=== PATIENT | female | born 1950 | race Caucasian/White ===

== ENCOUNTER 2020-10-28 16:33 | Outpatient (CLI) | payer MEDICARE, OTHER | END 2020-10-28 16:34 | disposition critical access hospital (66) | LOC: EMS 16:33 | DX: R42 Dizziness and giddiness (principal) | CPT/HCPCS: A0425; A0427 ==

== ENCOUNTER 2020-10-28 16:58 | Emergency (ER) | payer MEDICARE, OTHER ==
[2020-10-28 17:38] LABS: BASOPHILS # (AUTO) 0.1 10^3/uL (0.0-0.1); BASOPHILS % (AUTO) 0.6 %; EOSINOPHILS # (AUTO) 0.2 10^3/uL (0.0-0.7); EOSINOPHILS % (AUTO) 1.8 %; HCT - HEMATOCRIT 41.1 % (37.0-47.0); HGB - HEMOGLOBIN 14.2 g/dL (12.0-16.0); LYMPHOCYTES # (AUTO) 4.1 10^3/uL (1.5-3.5); LYMPHOCYTES % (AUTO) 43.3 %; MEAN CORPUSCULAR HEMOGLOBIN 32.9 pg (27.0-31.0); MEAN CORPUSCULAR HGB CONC 34.5 g/dL (32.0-36.0); MEAN CORPUSCULAR VOLUME 95.1 fL (81.0-99.0); MEAN PLATELET VOLUME 9.3 fL (7.9-10.8); MONOCYTES # (AUTO) 0.7 10^3/uL (0.0-1.0); MONOCYTES % (AUTO) 7.1 %; NEUTROPHILS # (AUTO) 4.4 10^3/uL (1.5-6.6); PLT - PLATELET COUNT 253 10^3/uL (130-450); RED BLOOD COUNT 4.32 10^6/uL (4.20-5.40); RED CELL DISTRIBUTION WIDTH 12.8 % (12.0-15.0); WHITE BLOOD COUNT 9.4 x10^3/uL (4.8-10.8)
[2020-10-28 17:49] LABS: ALBUMIN 4.5 g/dL (3.2-5.5); BILIRUBIN,TOTAL 0.9 mg/dL (0.2-1.0); CALCIUM 9.5 mg/dL (8.5-10.3); CREATININE 0.9 mg/dL (0.4-1.0); MAGNESIUM 2.5 mg/dL (1.7-2.8); TOTAL PROTEIN 7.7 g/dL (6.7-8.2)
[2020-10-28 17:50] LABS: ALBUMIN/GLOBULIN RATIO 1.4 (1.0-2.2)
--- NOTE | 2020-10-28 17:56 | XRAY Report ---
PROCEDURE: Hip w/Pelvis 2-3V LT INDICATIONS: hip inj TECHNIQUE: AP pelvis with lateral view(s) of the left hip(s). COMPARISON: None. FINDINGS: Bones: No fractures or dislocations. Pelvic ring appears intact. No suspicious bony lesions. Soft tissues: The visualized bowel gas pattern is normal. No suspicious soft tissue calcifications. IMPRESSION: Unremarkable pelvic and left hip radiographs Reviewed by: Harrison Livingston MD on 10/28/2020 4:54 PM [facility]DT Approved by: Harrison Livingston MD on 10/28/2020 4:54 PM AKDT Station ID: [id number]
[2020-10-28] MEDS ORDERED: SODIUM CHLORIDE 0.9% 1,000 ML IV STA (19:39)
--- NOTE | 2020-10-28 19:54 | ED Physician Documentation ---
History of Present Illness - Stated complaint Stated Complaint: FALL - Chief complaint Chief Complaint: General - History obtained from History obtained from: Patient - Additonal information Additional information: She had a few alcoholic drinks last night, she passed out falling and hurting her left side. She does not remember it, but she does not think she hit her head but cannot be sure. Today she is feeling dizzy and noticed significant elevated blood pressures. She says her blood pressures are usually normal in the range of 125/80 as recently as a few weeks ago. She is not on any blood pressure medications. She is on longstanding dexamethasone for pituitary insufficiency. She is up-to-date on tetanus. Review of Systems Ten Systems: 10 systems reviewed and negative Constitutional: reports: Reviewed and negative Throat: reports: Reviewed and negative Cardiac: reports: Reviewed and negative PD PAST MEDICAL HISTORY - Past Medical History Past Medical History: Yes Cardiovascular: High cholesterol Endocrine/Autoimmune: HyPOthyroidism, Other GI: GERD Other Past Medical History: pituatary adenoma - Past Surgical History Past Surgical History: Yes - Present Medications Home Medications: Ambulatory Orders Medication Instructions Recorded Confirmed Dexamethasone [Decadron] 0.25 mg PO DAILY PM 10/28/20 10/28/20 Levothyroxine Sodium [Synthroid] 25 mcg PO DAILY PM 10/28/20 10/28/20 Simvastatin [Zocor] 20 mg PO DAILY 10/28/20 10/28/20 lisinopriL [Zestril] 5 mg PO DAILY #14 tablet 10/28/20 - Allergies Allergies/Adverse Reactions: Allergies Allergy/AdvReac Type Severity Reaction Status Date / Time No Known Drug Allergies Allergy Verified 10/28/20 17:12 - Social History Does the pt smoke?: No Smoking Status: Never smoker Does the pt drink ETOH?: Yes Does the pt have substance abuse?: No PD ED PE NORMAL - Vitals Vital signs reviewed: Yes - General General: Alert and oriented X 3, No acute distress - HEENT HEENT: PERRL, EOMI - Neck Neck: Supple, no meningeal sign, No bony TTP - Cardiac Cardiac: RRR, No murmur - Respiratory Respiratory: No respiratory distress, Clear bilaterally - Abdomen Abdomen: Non tender - Back Back: No CVA TTP, No spinal TTP - Derm Derm: Normal color, Warm and dry - Extremities Extremities: Other (She has a skin tear above the left elbow which is intact. I asked the tech to redress it.) - Neuro Neuro: Alert and oriented X 3, Normal speech Results - Vitals Vitals: Vital Signs - 24 hr 10/28/20 10/28/20 10/28/20 17:08 19:12 21:00 Temperature 36.8 C 36.7 C 36.6 C Heart Rate 77 75 69 Respiratory 18 16 12 Rate Blood Pressure 211/101 H 208/125 H 222/102 H O2 Saturation 99 98 99 Oxygen O2 Source Room air - EKG (time done) 1722 Rate: Rate (enter#) (73) Rhythm: NSR [place]: Normal Intervals: Normal ID QRS: Normal Ischemia: Normal ST segments - Labs Labs: Laboratory Tests 10/28/20 10/28/20 17:32 17:32 WBC 9.4 RBC 4.32 Hgb 14.2 Hct 41.1 MCV 95.1 MCH 32.9 H MCHC 34.5 RDW 12.8 Plt Count 253 MPV 9.3 Neut # (Auto) 4.4 Lymph # (Auto) 4.1 H [place] # (Auto) 0.7 Eos # (Auto) 0.2 Baso # (Auto) 0.1 Absolute Nucleated RBC 0.00 Nucleated RBC % 0.0 Sodium 141 Potassium 4.0 Chloride 105 Carbon Dioxide 25 Anion Gap 11.0 BUN 22 H Creatinine 0.9 Estimated GFR (MDRD) 62 L Glucose 101 H Calcium 9.5 Magnesium 2.5 Total Bilirubin 0.9 AST 27 ALT 32 Alkaline Phosphatase 44 Total Protein 7.7 Albumin 4.5 Globulin 3.2 Albumin/Globulin Ratio 1.4 PD MEDICAL DECISION MAKING - ED course ED course: She presents after a fall last night related to some alcoholic beverages. She says she is not in withdrawal, is not a frequent drinker. She is dizzy today with elevated blood pressures. Clinically her hip is not broken and the x-ray is negative. We discussed general guidelines not to acutely treat elevated blood pressure, but seems reasonable to trial some IV fluids given that her BUN is elevated and may be a bit dehydrated after last night's activities. Also reasonable to do a CT of the head given new dizziness and she does not remember the accident. 70-year-old woman presents with nonspecific dizziness, elevated blood pressures which seem acute and this was after passing out episode last night while having some alcoholic beverages. She did not think she hit her head but was not completely sure. CT of the head done without IV contrast interpreted contemporaneously by me was normal. BUN was very slightly elevated, she was drinking alcohol last night so may be mildly dehydrated. IV fluids made her feel better but no change in the blood pressure. We discussed either a low-dose of antihypertensive versus watchful waiting and close follow-up and she would like to go ahead and try lisinopril after discussion of risks and benefits as well as side effects of most of the major antihypertensives. Departure - Departure Disposition: 01 Home, Self Care Clinical Impression: Elevated blood pressure reading, Skin tear of left upper extremity, Dizziness Syncopal episodes Qualifiers: Syncope type: unspecified Qualified Code(s): R55 - Syncope and collapse Condition: Good Record reviewed to determine appropriate education?: Yes Instructions: ED Dizziness UKO Prescriptions: lisinopriL [Zestril] 5 mg PO DAILY #14 tablet Comments: Drink plenty of fluids, follow-up with your doctor this coming week for blood pressure recheck. Return for new or worsening symptoms.
--- NOTE | 2020-10-28 20:33 | CT Report ---
PROCEDURE: HEAD WO INDICATIONS: head injury TECHNIQUE: Noncontrast 4.5 mm thick angled axial sections acquired from the foramen magnum to the vertex. For r adiation dose reduction, the following was used: automated exposure control, adjustment of mA and/or kV according to patient size. COMPARISON: None. FINDINGS: Image quality: Excellent. CSF spaces: Basal cisterns are patent. No extra-axial fluid collections. Ventricles are normal in size and shape. Brain: No midline shift. No intracranial masses or hemorrhage. Moderate cerebral volume loss. Mild -to-moderate periventricular white matter chronic small vessel ischemic changes. Arriola-white matter in terface is normal. Skull and face: Calvarium and visualized facial bones are intact, without suspicious lesions. Sinuses: Visualized sinuses and mastoids are clear. IMPRESSION: No acute intracranial abnormality. No intracranial bleed. No skull fracture. Reviewed by: Elan Huston MD on 10/28/2020 8:32 PM PDT Approved by: Elan Huston MD on 10/28/2020 8:32 PM PDT Station ID: [id number]
[2020-10-28] MEDS ORDERED: lisinopriL 5 MG TABLET PO STA (21:21)
[2020-10-28 21:27] VITALS: BP 193/111
== END 2020-10-28 21:27 | disposition home or self-care (01) ==
LOC: ED 16:58
DX: R03.0 Elevated blood-pressure reading, without diagnosis of hypertension (principal); S51.012A Laceration without foreign body of left elbow, initial encounter; W19.XXXA Unspecified fall, initial encounter; Y93.89 Activity, other specified; R42 Dizziness and giddiness; R55 Syncope and collapse; E23.0 Hypopituitarism
CPT/HCPCS: 36415; 70450; 73502; 80053; 83735; 85025; 93005; 99283; 99284; A9270